=== PATIENT | female | born 1970 | race Caucasian/White ===

== ENCOUNTER 2016-12-12 22:29 | Emergency (ER) | payer OTHER ==
--- NOTE | 2016-12-12 22:29 | EDPHY ---
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 She removed this acupuncture needle, is not a hollow bore, she struck the right hand thenar eminence through a glove, the needle was not bloody it was not a hollow point, patient immediately took off her glove and put rubbing alcohol on her wound however she had a hard time identifying if there was any even a wound but she did feel a little pinch. She presents emergency room for blood borne exposure. Currently this time she appears well nontoxic no acute distress. Past Medical History: Thyroid disease, depression Past Surgical History: No significant surgical history Social History: No Drugs, Alcohol, Tobacco. Family History: Non-contributary. ROS REVIEW OF SYSTEMS: A comprehensive 10 point review of systems is otherwise negative aside from elements mentioned in the history of present illness. Exam Constitutional triage nursing summary reviewed, vital signs reviewed, awake/ alert. Eyes normal conjunctivae and sclera, EOMI, PERRLA. HENT normal inspection, atraumatic, moist mucus membranes, no epistaxis, neck supple/ no meningismus, no raccoon eyes. Respiratory clear to auscultation bilaterally, normal breath sounds, no respiratory distress, no wheezing. Cardiovascular rate normal, regular rhythm, no murmur, no edema, distal pulses normal. Gastrointestinal soft, non-tender, no rebound, no guarding, normal bowel sounds, no distension, no pulsatile mass. Genitourinary no CVA tenderness. Musculoskeletal no midline vertebral tenderness, full range of motion, no calf swelling, no tenderness of extremities, no meningismus, good pulses, neurovascularly intact. Skin Right hand: No significant abnormality seen on the right hand specifically no puncture wound, pink, warm, & dry, no rash, skin atraumatic. Neurologic awake, alert and oriented x 3, AAOx3, moves all 4 extremities equally, motor intact, sensory intact, CN II-XII intact, normal cerebellar, normal vision, normal speech. Psychiatric normal mood/affect. Heme/Lymph/Immune no lymphadenopathy. Differential Diagnosis: Includes but is not limited to in a particular order needlestick, blood borne exposure, soft tissue injury, needle stick with the acupuncture needles Medical Decision Making: Lengthy discussion had with the patient as well as Dr. Howard with Infectious Disease Dr. Howard with ID does not feel this patient should be at high risk for transmission and does not recommend HIV prophylaxis at this time. I had a very lengthy discussion with the patient I did tell her to her decision if she would like HIV prophylaxis however it is low risk for transmission. A source OSHA panel has been sent on the HIV patient. And and this patient has declined HIV prophylaxis. We did send HIV and hepatitis panel. Patient is comfortable this plan. She understands she needs to follow up with Infectious Disease. Re-evaluation: 2241: patient is comfortable with no HIV prophylaxis medication. She is also comfortable following up with Infectious Disease. She understands she needs to call their for follow-up appointment. Social source panel sent, HIV and hepatitis panel from patient here sent. Source: Patient Allergies/Adverse Reactions: Penicillins Allergy (Verified 08/05/12 09:15) Departure - Departure Disposition: Home, Routine, Self-Care Clinical Impression: Needle stick injury Qualifiers: Encounter type: initial encounter Qualified Code(s): W27.3XXA - Contact with needle (sewing), initial encounter Condition: Good Instructions: Needle Stick Injuries (ED) Additional Instructions: 1. Return to the emergency room if you have any worsening symptoms questions or concerns. 2. please call make a follow-up appoint with Infectious Disease. Referrals: Anahi Howard MD [Medical Doctor] - As per Instructions
[2016-12-12 23:12] VITALS: BP 121/74; PULSE 66; RESP 16; TEMP 97.9; O2SAT 98
== END 2016-12-12 23:12 | disposition home or self-care (01) ==
DX: S61.431A Puncture wound without foreign body of right hand, initial encounter (principal); W46.0XXA Contact with hypodermic needle, initial encounter; Y92.239 Unspecified place in hospital as the place of occurrence of the external cause; Y99.0 Civilian activity done for income or pay; Y93.89 Activity, other specified
CPT/HCPCS: G0472

== ENCOUNTER → 2017-02-21 | Outpatient (CLI) | payer OTHER | LOC: FIMAGING 15:37 | PROVIDERS: ATTEND Radiology Diagnostic Radiology | DX: Z12.31 Encounter for screening mammogram for malignant neoplasm of breast (principal) | CPT/HCPCS: G0202 ==